=== PATIENT | male | born 1970 | race Caucasian/White ===

== ENCOUNTER 2018-08-07 18:05 | Emergency (ER) | payer OTHER ==
[~2018-08-07] VITALS: Ht 162.6 cm; Wt 68.2 kg
[2018-08-07 18:15] VITALS: BP 122/84; Ht 162.6 cm; Wt 68.2 kg
[2018-08-07] MEDS ORDERED: BENADRYL25 MG PO (18:18)
== END 2018-08-07 21:35 | disposition left against medical advice (07) ==
LOC: D.ER 18:05
DX: R55 Syncope and collapse (principal)